=== PATIENT | male | born 1970 | race Caucasian/White ===

== ENCOUNTER 2021-09-13 16:15 | Emergency (ER) | payer OTHER ==
[2021-09-13 16:31] VITALS: BP 133/93; PULSE 66; TEMP 97.9; BMI 24.7
[2021-09-13] MEDS ORDERED: KETOROLAC TROMETHAMINE 30 MG/1 ML VIAL IVPUSH ONE (17:08)
[2021-09-13] MEDS ORDERED: CYCLOBENZAPRINE HCL 5 MG TABLET PO ONE (17:09)
[2021-09-13] MEDS ORDERED: KETOROLAC TROMETHAMINE 15 MG/ML VIAL ONE (17:16)
[2021-09-13] MEDS ORDERED: CYCLOBENZAPRINE HCL 10 MG TABLET (FP) ONE (17:16)
== END 2021-09-13 18:26 | disposition home or self-care (01) ==
LOC: FER 16:15
DX: N39.0 Urinary tract infection, site not specified (principal)
CPT/HCPCS: 72100-TC-FY; 99283-25